=== PATIENT | male | born 2000 | race Caucasian/White ===

== ENCOUNTER 2020-02-14 23:25 | Inpatient (IN) | payer MEDICAID, SELFPAY ==
[2020-02-14 23:40] VITALS: BP 124/86; PULSE 77; RESP 18; TEMP 36.9; O2SAT 98; BMI 21.6
[2020-02-15] VITALS (9 sets, daily range): BP systolic 105–138; BP diastolic 62–79; PULSE 65–96; RESP 14–18; TEMP 36.4–37.4; O2SAT 98–100
--- NOTE | 2020-02-15 02:44 | ED_ITS ---
HPI - General Adult General Chief complaint: General Medical Stated complaint: Rash Time Seen by Provider: 02/15/20 02:40 Source: patient Mode of arrival: ambulatory History of Present Illness HPI narrative: This is a 19-year-old male who presents with concerns regarding new inflammation around the ventral right wrist that he states came up over the past day and then he noted after waking up that he had a red streak running proximally up his arm but denies any fevers, chills and is unclear to what may have caused the initial infection. He denies any IVDA but is known to have recently been in penitentiary. Otherwise, he denies any shortness of breath, chest pain/palpitations. Related Data Home Medications Medication Instructions Recorded Confirmed No Known Home Meds 02/15/20 02/15/20 Allergies Allergy/AdvReac Type Severity Reaction Status Date / Time sertraline [From ZOLOFT] Allergy Unknown HIVES Verified 02/14/20 23:32 vancomycin AdvReac Hives Verified 02/15/20 06:28 Review of Systems Review of Systems: Pertinent positives and negatives as stated in HPI and 10 point review systems is otherwise negative. PMFSH Past Medical History Source: nursing notes reviewed Social History Social History Alcohol intake: never Smoking Status: Never smoker Use of substances other than those prescribed or required for medical reasons: Yes Substance Use Type: Marijuana Substance Use Frequency: Occasionally Last Used Substance: Weeks (ago) Advance Directives: No Advance Directives Information Provided: No Physical Exam 2 Vital Signs: Vital Signs: Last Vital Signs Temp 99.0 F 02/15/20 06:00 Pulse 85 02/15/20 06:00 Resp 18 02/15/20 06:00 BP 105/62 02/15/20 06:00 Pulse Ox 99 02/15/20 06:00 Body Mass Index 21.6 VITAL SIGNS: Reviewed. GENERAL: Well developed, well nourished, in no acute distress. OROPHARYNX: no oral lesions noted, posterior pharynx clear and non-erythematous without noted tonsillar enlargement/erythema/exudates NECK: Supple, no adenopathy LUNGS: Normal breath sounds. No adventitious sounds or accessory muscle use. SpO2<100> CARDIOVASCULAR: Regular rate and rhythm without noted murmurs, no JVD or lower extremity edema. ABDOMEN: Soft, non-tender, non-distended with bowel sounds. No rigidity. No guarding. No palpable masses or hernias noted MUSCULOSKELETAL: No tenderness, deformities, or effusions noted on gross inspection. EXTREMITIES: Right arm with noted approximate 4.5 cm erythematous, raised area on the ventral wrist and then there is a noted eschar, and there is noted redness traveling up the course of the vein proximally and into the axilla. SKIN: Inspection of the skin reveals no rashes NEUROLOGIC: Alert and oriented x 4. Course Course Course Narrative: This is a 19-year-old male with history and clinical presentation consistent with evidence of possible bacteremia of unknown etiology. Patient denies any insect/PET injury to the right wrist. -labs, blood cultures, IV antibiotics On review of investigations there is a very mild leukocytosis with left shift, he is COVID negative, and he was provided with antibiotics. Patient experienced ?red man? symptom after receiving vancomycin and received 25 mg of Benadryl with complete resolution of the redness and the vancomycin was restarted at a slower rate. This case was discussed with the inpatient hospitalist who is agreeable for admission. Medical Decision Making Lab Data Result diagrams: 02/15/20 03:08 02/15/20 03:08 Labs: Lab Results 02/15/20 02/15/20 02/15/20 Range/Units 03:08 03:08 03:08 WBC 11.1 H (4.8-10.8) X10*3/uL RBC 5.75 (4.60-5.80) X10*6/uL Hgb 14.9 (14.0-18.0) g/dl Hct 45.7 (42-52) % MCV 79.5 L (80-98) fL MCH 25.9 L (27.0-33.0) pg MCHC 32.6 (31.0-36.0) g/dl RDW 12.3 (11.0-16.0) % Plt Count 203 (160-400) X10*3/uL MPV 12.8 H (9.4-12.4) fL Immature Gran % (Auto) 0.2 (0.0-0.4) % Neut % (Auto) 79.2 H (45-73) % Lymph % (Auto) 12.5 L (20-40) % [place] % (Auto) 6.8 (2-11) % Eos % (Auto) 0.9 (0-4) % Baso % (Auto) 0.4 (0-2) % Lymph # (Auto) 1.4 (1.2-4.9) X10*3/uL [place] # (Auto) 0.8 (0.1-1.2) X10*3/uL Eos # (Auto) 0.1 (0.0-0.4) X10*3/uL Baso # (Auto) 0.1 (0.0-0.2) X10*3/uL Abs Immat Gran (auto) 0.02 (0.00-0.03) X10*3/uL Absolute Neuts (auto) 8.8 H (2.0-8.3) X10*3/uL Absolute Nucleated RBC 0.000 (0.0-0.012) X10*3/uL Nucleated RBC % (auto) 0.0 (0.0-0.2) /100WBC Sodium 138 (135-145) mmol/L Potassium 4.0 (3.3-5.1) mmol/l Chloride 103 (96-108) mmol/L Carbon Dioxide 24 (22-29) mmol/L Anion Gap 15 (12-20) BUN 15 (9-16) mg/dL Creatinine 0.82 (0.5-1.4) mg/dL Estim Creat Clear Calc 118.8 Estimated GFR > 60 Random Glucose 90 (60-115) mg/dL Lactic Acid 1.2 (0.5-2.0) mmol/L Calcium 9.7 (8.4-10.2) mg/dL Total Bilirubin 0.6 (0.0-1.0) mg/dL AST 24 (5-37) U/L ALT 37 (0-40) U/L Alkaline Phosphatase 63 (39-117) U/L Total Protein 7.6 (6.5-8.0) g/dL Albumin 4.7 (3.5-5.0) g/dL Coronavirus (PCR) (Negative) COVID-19 ([facility]) COVID-19 Clin Com Influenza Type A (PCR) (Negative) Influenza Type B (PCR) (Negative) RSV RNA Qual (PCR) (Negative) 02/15/20 02/15/20 Range/Units 03:09 03:09 WBC (4.8-10.8) X10*3/uL RBC (4.60-5.80) X10*6/uL Hgb (14.0-18.0) g/dl Hct (42-52) % MCV (80-98) fL MCH (27.0-33.0) pg MCHC (31.0-36.0) g/dl RDW (11.0-16.0) % Plt Count (160-400) X10*3/uL MPV (9.4-12.4) fL Immature Gran % (Auto) (0.0-0.4) % Neut % (Auto) (45-73) % Lymph % (Auto) (20-40) % [place] % (Auto) (2-11) % Eos % (Auto) (0-4) % Baso % (Auto) (0-2) % Lymph # (Auto) (1.2-4.9) X10*3/uL [place] # (Auto) (0.1-1.2) X10*3/uL Eos # (Auto) (0.0-0.4) X10*3/uL Baso # (Auto) (0.0-0.2) X10*3/uL Abs Immat Gran (auto) (0.00-0.03) X10*3/uL Absolute Neuts (auto) (2.0-8.3) X10*3/uL Absolute Nucleated RBC (0.0-0.012) X10*3/uL Nucleated RBC % (auto) (0.0-0.2) /100WBC Sodium (135-145) mmol/L Potassium (3.3-5.1) mmol/l Chloride (96-108) mmol/L Carbon Dioxide (22-29) mmol/L Anion Gap (12-20) BUN (9-16) mg/dL Creatinine (0.5-1.4) mg/dL Estim Creat Clear Calc Estimated GFR Random Glucose (60-115) mg/dL Lactic Acid (0.5-2.0) mmol/L Calcium (8.4-10.2) mg/dL Total Bilirubin (0.0-1.0) mg/dL AST (5-37) U/L ALT (0-40) U/L Alkaline Phosphatase (39-117) U/L Total Protein (6.5-8.0) g/dL Albumin (3.5-5.0) g/dL Coronavirus (PCR) NEGATIVE (Negative) COVID-19 ([facility]) Cancelled COVID-19 Clin Com Cancelled Influenza Type A (PCR) NEGATIVE (Negative) Influenza Type B (PCR) NEGATIVE (Negative) RSV RNA Qual (PCR) NEGATIVE (Negative) Discharge Plan Discharge Clinical Impression: Bacteremia Patient Disposition: Admitted As Inpatient
[2020-02-15] MEDS: Piperacillin Sodium/Tazobactam 3.375 GM in 0.9 % Sodium Chloride 50 ML IV (03:22)
[2020-02-15 03:26] LABS: Basophils Absolute Auto 0.1 X10*3/uL (0.0-0.2); Basophils Percent Auto 0.4 % (0-2); Eosinophils Absolute Auto 0.1 X10*3/uL (0.0-0.4); Eosinophils Percent Auto 0.9 % (0-4); Hematocrit 45.7 % (42-52); Hemoglobin 14.9 g/dl (14.0-18.0); Imm Gran Abs Auto 0.02 X10*3/uL (0.00-0.03); Imm Gran Pct Auto 0.2 % (0.0-0.4); Lymphocytes Absolute Auto 1.4 X10*3/uL (1.2-4.9); Lymphocytes Percent Auto 12.5 % (20-40); Mean Corpuscular HGB Conc 32.6 g/dl (31.0-36.0); Mean Corpuscular Hemoglobin 25.9 pg (27.0-33.0); Mean Corpuscular Volume 79.5 fL (80-98); Mean Platelet Volume 12.8 fL (9.4-12.4); Monocytes Absolute Auto 0.8 X10*3/uL (0.1-1.2); Monocytes Percent Auto 6.8 % (2-11); Neutrophils Absolute Auto 8.8 X10*3/uL (2.0-8.3); Neutrophils Percent Auto 79.2 % (45-73); Platelet Count 203 X10*3/uL (160-400); Red Blood Count 5.75 X10*6/uL (4.60-5.80); Red Cell Distribution Width 12.3 % (11.0-16.0); White Blood Count 11.1 X10*3/uL (4.8-10.8)
[2020-02-15 03:28] LABS: MANUAL DIFF FLAG NO
[2020-02-15 03:54] LABS: Lactic Acid 1.2 mmol/L (0.5-2.0)
[2020-02-15 03:58] LABS: Alanine Aminotransferase 37 U/L (0-40); Albumin Level 4.7 g/dL (3.5-5.0); Alkaline Phosphatase 63 U/L (39-117); Anion Gap 15 (12-20); Aspartate Amino Transferase 24 U/L (5-37); Bilirubin Total 0.6 mg/dL (0.0-1.0); Blood Urea Nitrogen 15 mg/dL (9-16); Calcium 9.7 mg/dL (8.4-10.2); Carbon Dioxide 24 mmol/L (22-29); Chloride 103 mmol/L (96-108); Creatinine Clr Calc Pharmacy 118.8; Estimated Glomerular Filt Rate > 60; Glucose Random 90 mg/dL (60-115); Sodium 138 mmol/L (135-145); Total Protein 7.6 g/dL (6.5-8.0)
[2020-02-15] MEDS: vancomycin HCL 1,000 MG in 0.9 % Sodium Chloride 250 ML 270 MG IV (04:06)
[2020-02-15] MEDS: diphenhydrAMINE HCL 50 MG/ML VIAL 25 MG IVPUSH (05:06)
--- NOTE | 2020-02-15 05:09 | PC.NURSE ---
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 bendryl given. pt has no swelling to the oral airway. redness to face, chest, vitals stable. sat 100% on room air/.
--- NOTE | 2020-02-15 05:24 | PC.NURSE ---
pt redness to his face is lessening. pt has no resp distress and no difficulty swallowing. vacomycin remains off and will be resumed in 30 from receiving benadryl.
[2020-02-15 05:35] LABS: Influenza A PCR NEGATIVE (Negative); Influenza B PCR NEGATIVE (Negative); Resp Syncy Virus RNA Qual PCR NEGATIVE (Negative); SARS COV2 PCR INHOUSE NEGATIVE (Negative)
--- NOTE | 2020-02-15 06:32 | PC.NURSE ---
vancomycin resumed at a lower dose per dr garcia. pt redness has resolved to his face and chest. arm redness is resolving but still present.
--- NOTE | 2020-02-15 07:06 | PC.NURSE ---
Pt comfortable in bed awaiting admission. Right arm effected area remains red but has not increased outside of marked area. Pt's face and chest no longer red. No rash. Pt denies itching.
--- NOTE | 2020-02-15 11:10 | P.HPHOSP_ITS ---
History of Present Illness Date of Service: 02/15/20 <GENOVEVA Velazquez - Last Filed: 02/15/20 11:19> Chief Complaint: right arm redness <GENOVEVA Velazquez - Last Filed: 02/15/20 11:19> This is a 19-year-old healthy male who presents to the emergency department with right arm redness. Yesterday he noticed an area of redness on his wrist which progressed to streaking up his arm this morning. This prompted him to come to the emergency department. He denies any associated pain, fever, chills. Lab work was relatively unremarkable, he was noted to have a white count of 11.1. He was given a dose of vancomycin Zosyn and the decision was made to admit him for further management. <GENOVEVA Velazquez - Last Filed: 02/15/20 11:19> Review of Systems Review of Systems: Yes all other systems are reviewed and are negative <GENOVEVA Velazquez - Last Filed: 02/15/20 11:19> Constitutional: Constitutional: Denies chills and Denies fever(s) <GENOVEVA Velazquez - Last Filed: 02/15/20 11:19> Cardiovascular: Cardiovascular: Denies chest pain <GENOVEVA Velazquez - Last Filed: 02/15/20 11:19> Respiratory: Respiratory: Denies cough <GENOVEVA Velazquez - Last Filed: 02/15/20 11:19> Gastrointestinal: Gastrointestinal: Denies abdominal pain <GENOVEVA Velazquez - Last Filed: 02/15/20 11:19> [facility] Medical History: Medical History (Updated 02/15/20 @ 11:16 by GENOVEVA Velazquez) No significant medical problems <GENOVEVA Velazquez Last Filed: 02/15/20 11:19> Functional capacity: independent ambulation <GENOVEVA Velazquez - Last Filed: 02/15/20 11:19> Family history: reviewed and not pertinent <GENOVEVA Velazquez - Last Filed: 02/15/20 11:19> Surgical History: Surgical History (Updated 02/15/20 @ 11:14 by GENOVEVA Velazquez) H/O foot surgery <GENOVEVA Velazquez - Last Filed: 02/15/20 11:19> Social History: Social History Household Members: Family Household Members Other:: mom Housing: House Do you presently have visiting nurse or other home services: No Alcohol intake: never Smoking Status: Never smoker Use of substances other than those prescribed or required for medical reasons: No Substance Use Type: Marijuana Substance Use Frequency: Occasionally Last Used Substance: Weeks (ago) Currently Displaying Signs/Symptoms of Drug Intoxication Withdrawal: No Have you been hit, kicked, punched, or otherwise hurt by someone within the past year? If so, by whom?: No Do you feel safe in your current relationship?: No Is there a partner from a previous relationship who is making you feel unsafe now?: No Are you made to feel afraid or neglected: No Advance Directives: No Advance Directives Information Provided: No Do you have thoughts of harming others: None Do you have a plan to hurt others: No Plan Recently lost weight without trying: No <GENOVEVA Velazquez - Last Filed: 02/15/20 11:19> Meds Allergies/Adverse reactions: Allergies Allergy/AdvReac Type Severity Reaction Status Date / Time sertraline [From ZOLOFT] Allergy Unknown HIVES Verified 02/14/20 23:32 vancomycin AdvReac Hives Verified 02/15/20 06:28 <GENOVEVA Velazquez - Last Filed: 02/15/20 11:19> Home medications: Home Medications Medication Instructions Recorded Confirmed Type No Known Home Meds 02/15/20 02/15/20 History <GENOVEVA Velazquez - Last Filed: 02/15/20 11:19> Physical Exam Vital Signs and Narrative: Vital Signs: Last Vital Signs Temp 98.7 F 02/15/20 08:42 Pulse 89 02/15/20 08:42 Resp 16 02/15/20 08:42 BP 123/79 02/15/20 08:42 Pulse Ox 100 02/15/20 08:42 Body Mass Index 21.6 <GENOVEVA Velazquez - Last Filed: 02/15/20 11:19> Const: Nutritional Appearance: well nourished <GENOVEVA Velazquez - Last Filed: 02/15/20 11:19> Orientation/consciousness: patient oriented x3 <GENOVEVA Velazquez - Last Filed: 02/15/20 11:19> HENMT: Head: Yes normocephalic and Yes atraumatic <GENOVEVA Velazquez - Last Filed: 02/15/20 11:19> Eyes: Sclerae: sclerae normal <GENOVEVA Velazquez - Last Filed: 1 11:19> Chest: Chest palpation & inspection: normal inspection of the chest <GENOVEVA Velazquez - Last Filed: 02/15/20 11:19> Resp: Effort & Inspection: normal respiratory effort and no respiratory distress <GENOVEVA Velazquez - Last Filed: 02/15/20 11:19> Auscultation: clear to auscultation bilaterally <GENOVEVA Velazquez - Last Filed: 02/15/20 11:19> Cardio: Rate: regular rate <GENOVEVA Velazquez - Last Filed: 02/15/20 11:19> Rhythm: regular rhythm <GENOVEVA Velazquez - Last Filed: 02/15/20 11:19> GI: Palpation (GI): Soft to palpation and nontender <GENOVEVA Velazquez - Last Filed: 02/15/20 11:19> Skin: General skin exam: no rashes or lesions noted <GENOVEVA Velazquez - Last Filed: 02/15/20 11:19> Neuro: General: patient oriented x3 <GENOVEVA Velazquez - Last Filed: 02/15/20 11:19> Cranial nerves: Yes CN's II-XII intact bilaterally and Yes Bilaterally intact EOM present <GENOVEVA Velazquez - Last Filed: 02/15/20 11:19> Extrem: Other: Area of erythema on ventral surface of right wrist with streaking up into armpit <GENOVEVA Velazquez - Last Filed: 02/15/20 11:19> Results Labs CBC and Chem 7: : 02/16/20 05:55 12/31/20 05:55 <GENOVEVA Velazquez - Last Filed: 02/15/20 11:19> Labs: Laboratory Results - last 24 hr 02/15/20 02/15/20 02/15/20 03:08 03:08 03:08 MCV 79.5 L MCH 25.9 L MCHC 32.6 RDW 12.3 Plt Count 203 MPV 12.8 H Immature Gran % (Auto) 0.2 Neut % (Auto) 79.2 H Lymph % (Auto) 12.5 L [place] % (Auto) 6.8 Eos % (Auto) 0.9 Baso % (Auto) 0.4 Lymph # (Auto) 1.4 [place] # (Auto) 0.8 Eos # (Auto) 0.1 Baso # (Auto) 0.1 Abs Immat Gran (auto) 0.02 Absolute Neuts (auto) 8.8 H Absolute Nucleated RBC 0.000 Nucleated RBC % (auto) 0.0 Anion Gap 15 Estim Creat Clear Calc 118.8 Estimated GFR > 60 Random Glucose 90 Lactic Acid 1.2 Calcium 9.7 Total Bilirubin 0.6 AST 24 ALT 37 Alkaline Phosphatase 63 Total Protein 7.6 Albumin 4.7 Coronavirus (PCR) COVID-19 ([facility]) COVID-19 Clin Com Influenza Type A (PCR) Influenza Type B (PCR) RSV RNA Qual (PCR) 02/15/20 02/15/20 03:09 03:09 MCV MCH MCHC RDW Plt Count MPV Immature Gran % (Auto) Neut % (Auto) Lymph % (Auto) [place] % (Auto) Eos % (Auto) Baso % (Auto) Lymph # (Auto) [place] # (Auto) Eos # (Auto) Baso # (Auto) Abs Immat Gran (auto) Absolute Neuts (auto) Absolute Nucleated RBC Nucleated RBC % (auto) Anion Gap Estim Creat Clear Calc Estimated GFR Random Glucose Lactic Acid Calcium Total Bilirubin AST ALT Alkaline Phosphatase Total Protein Albumin Coronavirus (PCR) NEGATIVE COVID-19 ([facility]) Cancelled COVID-19 Clin Com Cancelled Influenza Type A (PCR) NEGATIVE Influenza Type B (PCR) NEGATIVE RSV RNA Qual (PCR) NEGATIVE <GENOVEVA Velazquez - Last Filed: 02/15/20 11:19> Assessment and Plan (1) Cellulitis of right arm: Status: Acute <GENOVEVA Velazquez - Last Filed: 02/15/20 11:19> (2) Lymphangitis: Status: Acute <GENOVEVA Velazquez - Last Filed: 02/15/20 11:19> This is a 19-year-old male with no significant past medical history who presents to the emergency department with redness streaking up his right arm Right upper extremity cellulitis/lymphangitis No evidence of sepsis IV clindamycin DVT prophylaxis-low risk early ambulation will be encouraged Code status-full code This case was discussed with Dr. Valencia <GENOVEVA Velazquez - Last Filed: 02/15/20 11:19>
[2020-02-15] MEDS: Clindamycin Phosphate/D5W 600 MG/50 ML PIGGYBACK 100 MG IV ×2 (11:59→20:10)
--- NOTE | 2020-02-15 12:12 | PC.NURSE ---
Pt awaiting bed assignment for transfer to floor. Clindamycin started. Lunch ordered for pt.
--- NOTE | 2020-02-15 17:38 | PC.NURSE ---
Bed assigned to pt. Schuster scheduled b ut with previous hx of red man syndrome was notified to ensure that he wanted this next dose. Per Dr.Mlaphah austin schuster and he will be placing another order for a different abx.
--- NOTE | 2020-02-15 17:41 | PC.NURSE ---
[facility] floor contacted. Will call back for report when able.
[2020-02-15] MEDS: 0.9 % Sodium Chloride Flush 3 ML SYRINGE IVFLUSH ×2 (20:10→20:48)
[2020-02-16] MEDS: Clindamycin Phosphate/D5W 600 MG/50 ML PIGGYBACK 100 MG IV ×2 (03:15→10:04)
[2020-02-16 03:43] VITALS: BP 141/70; PULSE 86; RESP 16; TEMP 36.6; O2SAT 99
[2020-02-16] MEDS: diphenhydrAMINE HCL 25 MG TABLET PO (06:21)
[2020-02-16 07:06] LABS: Anion Gap 15 (12-20); Blood Urea Nitrogen 11 mg/dL (9-16); Calcium 9.5 mg/dL (8.4-10.2); Carbon Dioxide 22 mmol/L (22-29); Chloride 105 mmol/L (96-108); Creatinine Clr Calc Pharmacy 121.8; Estimated Glomerular Filt Rate > 60; Glucose Random 116 mg/dL (60-115); Sodium 138 mmol/L (135-145)
[2020-02-16 07:07] LABS: Basophils Percent Auto 0.4 % (0-2); Eosinophils Percent Auto 2.1 % (0-4); Hemoglobin 14.5 g/dl (14.0-18.0); Imm Gran Abs Auto 0.03 X10*3/uL (0.00-0.03); Imm Gran Pct Auto 0.3 % (0.0-0.4); MANUAL DIFF FLAG SCAN; Red Blood Count 5.58 X10*6/uL (4.60-5.80); Red Cell Distribution Width 12.4 % (11.0-16.0); SCAN SMEAR FLAG 1
[2020-02-16 07:09] LABS: Basophils Absolute Auto 0.1 X10*3/uL (0.0-0.2); Eosinophils Absolute Auto 0.3 X10*3/uL (0.0-0.4); Hematocrit 44.2 % (42-52); Lymphocytes Absolute Auto 0.8 X10*3/uL (1.2-4.9); Lymphocytes Percent Auto 6.7 % (20-40); Mean Corpuscular HGB Conc 32.8 g/dl (31.0-36.0); Mean Corpuscular Volume 79.2 fL (80-98); Monocytes Percent Auto 8.8 % (2-11); Neutrophils Absolute Auto 9.5 X10*3/uL (2.0-8.3); Neutrophils Percent Auto 81.7 % (45-73); PLT CLUMP 1
[2020-02-16] MEDS: 0.9 % Sodium Chloride Flush 3 ML SYRINGE IVFLUSH ×3 (07:11→19:54)
[2020-02-16 07:13] LABS: PLT ABN DIST 1
[2020-02-16 07:35] LABS: Platelet Count 149 X10*3/uL (160-400); White Blood Count 11.7 X10*3/uL (4.8-10.8)
[2020-02-16 07:36] LABS: SLIDE REVIEW VERIFIED
[2020-02-16 07:55] VITALS: BP 121/76; PULSE 90; RESP 18; TEMP 37.1; O2SAT 99
--- NOTE | 2020-02-16 09:16 | HO.PM.IMPN ---
Subjective Subjective Date of Service: 02/16/20 Interval History: Seen in follow-up for heart right the hand and on cellulitis. Patient says that he days itchiness in the arm but thinks this swelling in the redness has significantly improved since yesterday. There is itchyness in the arm Review of Systems Gen: no fever Resp: no sob, no cough CV: no chest, no AN, no leg edema GI: No n/v, no abd pain Musculoskeletal: Redness in the right arm. Neuro: No confusion Physical Exam Vital Signs: Vital Signs: Last Vital Signs Temp 98.8 F 02/16/20 07:55 Pulse 90 02/16/20 07:55 Resp 18 02/16/20 07:55 BP 121/76 02/16/20 07:55 Pulse Ox 99 02/16/20 07:55 Body Mass Index 21.6 Const: General: healthy appearing Orientation/consciousness: patient oriented x3 Resp: Effort & Inspection: normal respiratory effort and able to speak in complete sentences Cardio: Rate: regular rate Skin: Other: Neuro: General: patient oriented x3 Objective Data Current Medications Generic Name Dose Route Start Last Admin Trade Name Freq PRN Reason Stop Dose Admin Acetaminophen 650 mg 02/15/20 19:33 Acetaminophen 325 Mg Tablet PO Q6H PRN Pain, Mild (Pain Scale 1-3) Docusate Sodium 100 mg 02/15/20 19:33 Docusate Sodium 100 Mg Capsule PO DAILY PRN Constipation Clindamycin Phosphate 600 mg in 50 mls @ 100 mls/hr 02/15/20 11:00 02/16/20 03:50 Cleocin IV Infused Q8H [facility] Infusion Ondansetron HCl 4 mg 02/15/20 19:33 Ondansetron Hcl 4 Mg/2 Ml Vial IVPUSH Q8H PRN Nausea and Vomiting Sodium Chloride 3 ml 02/15/20 19:33 02/16/20 07:11 0.9 % Sodium Chloride Flush 3 Ml Syringe IVFLUSH 3 ml QSHIFT [facility] Administration Labs CBC & Chem 7: 02/16/20 05:55 02/16/20 05:55 Microbiology Microbiology Results: Microbiology 02/15/20 03:08 Blood - Venous Blood Culture - Preliminary No growth after 24 hours. 02/15/20 03:08 Blood - Venous Blood Culture - Preliminary No growth after 24 hours. Assessment and Plan (1) Cellulitis of right arm: Status: Acute (2) Lymphangitis: Status: Acute Assessment and Plan: 19-year-old male with no significant past medical history who presents to the emergency department with redness streaking up his right arm Right upper extremity cellulitis/lymphangitis No evidence of sepsis IV clindamycin ID consult to assess Cultures pending DVT prophylaxis-low risk early ambulation will be encouraged Code status-full code
[2020-02-16 11:54] VITALS: BP 117/74; PULSE 80; RESP 18; TEMP 37.1; O2SAT 99
--- NOTE | 2020-02-16 12:14 | P.F2F_ITS ---
Service Date Service Date: 02/16/20 Reasons for Services Reason for penitentiary: medication management Reason for occupational therapy: home safety and mobility and gait/transfer training Homebound: Leaving the home is medically contraindicated at this time without the asist of a device and/or another person due th the listed conditions above and below. Homebound supporting statement: Homebound due to unsteady gait, poor understanding and threfore needs the assistance of another person Certification: Based on the above findings, I certify that this patient is confined to the home and needs intermittent penitentiary care, physical therapy and/or speech therapy, or continues to need occupational therapy. The patient is under my care, and I have initiated the establishment of the plan of care. The patient will be followed by a physician who will periodically review the plan of care.
--- NOTE | 2020-02-16 13:02 | MHC.CM.PN ---
Pt independent at home, lives with mom and step-father, pt has no need for home services at this time, pt is uninsured and referral was made to financial services who report they will see pt this afternoon and assist with pt with signing up for [facility]. Per hospitalist pt will need at least a few more days of IV abx before discharge. Discharge Plan: Home self-care, family to transport HCP offered, pt declined at this time.
[2020-02-16 15:36] VITALS: BP 131/75; PULSE 77; RESP 18; TEMP 36.8; O2SAT 97
[2020-02-16] MEDS: Linezolid/D5W 600 MG/300 ML PIGGYBACK 300 MG IV (17:16)
[2020-02-16 19:35] VITALS: BP 110/72; PULSE 99; RESP 18; TEMP 36.5; O2SAT 100
--- NOTE | 2020-02-16 19:53 | W.PM.IDCN ---
History of Present Illness Data of Consult Service Date: 02/16/20 Requesting physician: Loc Valencia Primary Care Provider: None Physician HPI Reason for consult: right arm lymphangitis He presents to hospital with discomfort and redness starting from wrist and spreading up arm He has area at wrist that has swelling and pustule which has been itchy over last week He says skin area at wrist has been itchy over last couple months Yesterday he has redness started extending up right arm Review of Systems Review of Systems: Yes all other systems are reviewed and are negative [facility] Past Medical History Medical History No significant medical problems Functional capacity: independent ambulation Family History Family history: reviewed and not pertinent Surgical History Surgical History H/O foot surgery Social History Social History Household Members: Family Household Members Other:: mom Housing: House Do you presently have visiting nurse or other home services: No Alcohol intake: never Smoking Status: Never smoker Use of substances other than those prescribed or required for medical reasons: No Substance Use Type: Marijuana Substance Use Frequency: Occasionally Last Used Substance: Weeks (ago) Currently Displaying Signs/Symptoms of Drug Intoxication Withdrawal: No Have you been hit, kicked, punched, or otherwise hurt by someone within the past year? If so, by whom?: No Do you feel safe in your current relationship?: No Is there a partner from a previous relationship who is making you feel unsafe now?: No Are you made to feel afraid or neglected: No Advance Directives: No Advance Directives Information Provided: No Do you have thoughts of harming others: None Do you have a plan to hurt others: No Plan Recently lost weight without trying: No service: No Current occupational status: unemployed Meds Allergies Allergy/AdvReac Type Severity Reaction Status Date / Time sertraline [From ZOLOFT] Allergy Unknown HIVES Verified 02/14/20 23:32 vancomycin AdvReac Hives Verified 02/15/20 06:28 Home Medications Medication Instructions Recorded Confirmed Type No Known Home Meds 02/15/20 02/15/20 History Physical Exam Vital Signs: Vital Signs: Last Vital Signs Temp 97.7 F 02/16/20 19:35 Pulse 99 02/16/20 19:35 Resp 18 02/16/20 19:35 BP 110/72 02/16/20 19:35 Pulse Ox 100 02/16/20 19:35 Body Mass Index 21.6 Const: General: cooperative HENMT: Head: Yes normal to inspection Resp: Effort & Inspection: normal respiratory effort Cardio: Rate: regular rate Rhythm: regular rhythm GI: Palpation (GI): Soft to palpation and nontender Skin: General skin exam: no rashes or lesions noted Extrem: Other: lymphangitic spread up right arm Assessment and Plan (1) Cellulitis of right arm: Problem details: He has concern over MRSA as he had skin irritation he thinks related to handcuffs during incarceration He has concern over strep lymphangitis as well He is not responding to Vancomycin and has low levels Status: Acute Linezolid 600 mg IV every 12 hours cover staph and strep [place] effect helps reduce bacterial toxin and bacterial burden Probably 10-14 days (2) Lymphangitis: Status: Acute Results Labs CBC & Chem 7: 02/16/20 05:55 02/16/20 05:55 Labs: Short CBC 02/16/20 Range/Units 05:55 WBC 11.7 H (4.8-10.8) X10*3/uL Hgb 14.5 (14.0-18.0) g/dl Hct 44.2 (42-52) % Plt Count 149 L D (160-400) X10*3/uL BMP 02/16/20 05:55 Sodium 138 Potassium 4.0 Chloride 105 Carbon Dioxide 22 BUN 11 Creatinine 0.80 Calcium 9.5 Microbiology Microbiology Results: Microbiology 02/15/20 03:08 Blood - Venous Blood Culture - Preliminary No growth after 24 hours. 02/15/20 03:08 Blood - Venous Blood Culture - Preliminary No growth after 24 hours.
[2020-02-16 23:36] VITALS: BP 136/59; PULSE 73; RESP 19; TEMP 36.5; O2SAT 98
[2020-02-17 04:00] VITALS: BP 128/61; PULSE 87; RESP 18; TEMP 36.8; O2SAT 99
[2020-02-17] MEDS: Linezolid/D5W 600 MG/300 ML PIGGYBACK 300 MG IV ×2 (05:05→17:05)
[2020-02-17] MEDS: 0.9 % Sodium Chloride Flush 3 ML SYRINGE IVFLUSH ×3 (07:41→19:21)
[2020-02-17 08:00] VITALS: BP 119/71; PULSE 85; RESP 16; TEMP 36.9; O2SAT 98
--- NOTE | 2020-02-17 08:22 | HO.PM.IMPN ---
Subjective Subjective Date of Service: 02/17/20 Interval History: Seen in follow-up for heart right the hand and on cellulitis. Patient says that he days itchiness in the arm but thinks this swelling in the redness has significantly improved since yesterday. There is itchyness in the arm Review of Systems Gen: no fever Resp: no sob, no cough CV: no chest, no AN, no leg edema GI: No n/v, no abd pain Musculoskeletal: Redness in the right arm. Neuro: No confusion Physical Exam Vital Signs: Vital Signs: Last Vital Signs Temp 98.2 F 02/17/20 04:00 Pulse 87 02/17/20 04:00 Resp 18 02/17/20 04:00 BP 128/61 02/17/20 04:00 Pulse Ox 99 02/17/20 04:00 Body Mass Index 21.6 Const: Orientation/consciousness: patient oriented x3 Resp: Effort & Inspection: normal respiratory effort Cardio: Rate: regular rate GI: Inspection: Yes normal to inspection Skin: Other: Neuro: General: patient oriented x3 Objective Data Current Medications Generic Name Dose Route Start Last Admin Trade Name Freq PRN Reason Stop Dose Admin Acetaminophen 650 mg 02/15/20 19:33 Acetaminophen 325 Mg Tablet PO Q6H PRN Pain, Mild (Pain Scale 1-3) Docusate Sodium 100 mg 02/15/20 19:33 Docusate Sodium 100 Mg Capsule PO DAILY PRN Constipation Linezolid 600 mg in 300 mls @ 300 mls/hr 02/16/20 18:00 02/17/20 06:21 Zyvox/D5w IV Infused Q12H DOLORES Infusion Ondansetron HCl 4 mg 02/15/20 19:33 Ondansetron Hcl 4 Mg/2 Ml Vial IVPUSH Q8H PRN Nausea and Vomiting Sodium Chloride 3 ml 02/15/20 19:33 02/17/20 07:41 0.9 % Sodium Chloride Flush 3 Ml Syringe IVFLUSH 3 ml QSHIFT [facility] Administration Labs CBC & Chem 7: 02/16/20 05:55 02/16/20 05:55 Microbiology Microbiology Results: Microbiology 02/15/20 03:08 Blood - Venous Blood Culture - Preliminary No growth after 48 hours. 02/15/20 03:08 Blood - Venous Blood Culture - Preliminary No growth after 48 hours. Assessment and Plan (1) Cellulitis of right arm: Problem details: He has concern over MRSA as he had skin irritation he thinks related to handcuffs during incarceration He has concern over strep lymphangitis as well He is not responding to Vancomycin and has low levels Status: Acute (2) Lymphangitis: Status: Acute Assessment and Plan: 19-year-old male with no significant past medical history who presents to the emergency department with redness streaking up his right arm Right upper extremity cellulitis/lymphangitis No evidence of sepsis IV clindamycin changed to Zyvox 02/15 with signficant improvment. IV Zyvox for 1 more day or home with PO Zyvox for 14 days per ID recommendation Cultures negatiove DVT prophylaxis-low risk early ambulation will be encouraged Code status-full code
[2020-02-17 11:35] VITALS: BP 135/71; PULSE 66; RESP 16; TEMP 36.4; O2SAT 99
[2020-02-17 15:04] VITALS: BP 117/65; PULSE 78; RESP 17; TEMP 36.5; O2SAT 98
[2020-02-17 18:48] VITALS: BP 150/87; PULSE 68; RESP 18; TEMP 36.7; O2SAT 99
[2020-02-18] VITALS: BP 117/74; PULSE 66; RESP 16; TEMP 37.1; O2SAT 100
[2020-02-18 04:00] VITALS: BP 138/76; PULSE 63; RESP 16; TEMP 37.2; O2SAT 100
[2020-02-18] MEDS: Linezolid/D5W 600 MG/300 ML PIGGYBACK 300 MG IV (05:29)
[2020-02-18 07:28] VITALS: BP 119/66; PULSE 70; RESP 18; TEMP 36.4; O2SAT 100
[2020-02-18] MEDS: 0.9 % Sodium Chloride Flush 3 ML SYRINGE IVFLUSH (08:50)
--- NOTE | 2020-02-18 10:29 | MHC.CM.PN ---
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 MET WITH PATIENT REPORTS THAT THE FEELS THE REDNESS AND SWELLING IF HIS RIGHT HAND AND ARM ARE BETTER .A LITTLE BETTER TODAY LESS REDNESS AND SWELLING , BUT THE ITCHINESS PERSISTS. CURRENT PLAN CONTINUE IV ZYVOX AND THEN AT DISCHARGE SWITCH TO PO ZYVOX DISCHARGE PLAN ANTICIPATE HOME NO SERVICES PATIENT TO SELF ARRANGE FOR TRANSPORTATION [facility] IS ASSISITNG PATIENT WITH ,[employer] HEALTH APPLICATION NO PPCP LIST OF THE [facility] GIVEN TO HIM ONCE HE HAS ESTABLISHED INSURANCE TO PICK ONE
--- NOTE | 2020-02-18 10:55 | PM.DS ---
DS: Providers Provider Date of admission: 02/15/20 11:00 Primary care physician: None Physician Consults: 02/16/20 14:19 Consult to Infectious Diseases Routine Consulting Provider: Taylor Lord Reason for consultation: cellulitis of the arm DS: Diagnosis Discharge Diagnosis (1) Cellulitis of right arm: Status: Acute Problem details: He has concern over MRSA as he had skin irritation he thinks related to handcuffs during incarceration He has concern over strep lymphangitis as well He is not responding to Vancomycin and has low levels (2) Lymphangitis: Status: Acute DS: Medications Discharge Medications Home Medications: Home Medications Medication Instructions Recorded Confirmed No Known Home Meds 02/15/20 02/15/20 DS: Summary Hospital Course Hospital Course: HPI: This is a 19-year-old healthy male who presents to the emergency department with right arm redness. Yesterday he noticed an area of redness on his wrist which progressed to streaking up his arm this morning. This prompted him to come to the emergency department. He denies any associated pain, fever, chills. Lab work was relatively unremarkable, he was noted to have a white count of 11.1. He was given a dose of vancomycin Zosyn and the decision was made to admit him for further management. Hospital Course: He was initally treated in ED with IV Vancomycin and reportedly developped claudia syndrome. He was admitted and started on Clindamcyin but the next day there was no signficantly improvmeent so Infectious disease consultation was requested and Dr. Lord started Zyvox on and seems to have have significantly improvmement and will discharge home with .. The erythema is nearly all resolved. Time Spent with Patient Time attestation: Total time spent providing and/or coordinating discharge services: Physical Exam Vital Signs: Vital Signs: Last Vital Signs Temp 97.5 F 02/18/20 07:28 Pulse 70 02/18/20 07:28 Resp 18 02/18/20 07:28 BP 119/66 02/18/20 07:28 Pulse Ox 100 02/18/20 07:28 Body Mass Index 21.6 DS: Data Data Completed and Pending Labs on day of discharge: 02/15/20 02:41 Consult Rx Vancomycin Dosing 1 each MISCELLANE DAILY PRN Piperacillin Sodium/Tazobactam [Zosyn] 3.375 gm 0.9 % Sodium Chloride [Ns] 50 ml IV ONCE vancomycin HCL 1,000 mg 0.9 % Sodium Chloride [Ns] 250 ml IV ONCE 02/15/20 03:08 Complete Blood Count Auto Diff Stat Comprehensive Met. Panel Stat Lactic Acid Stat 02/15/20 03:09 SARS-CoV2/FLU/RSV Stat 02/15/20 03:15 vancomycin HCL 1,000 mg .ROUTE .STK-MED ONE 02/15/20 03:16 Piperacillin Sodium/Tazobactam [Zosyn] 3.375 gm IV .STK-MED ONE 02/15/20 05:00 diphenhydrAMINE HCL [Benadryl] 25 mg IVPUSH ONCE ONE 02/15/20 10:54 Transfer Order Routine 02/15/20 11:00 Clindamycin Phosphate/D5W [Cleocin] 600 mg in 50 ml IV Q8H 02/15/20 16:00 vancomycin HCL 1,000 mg 0.9 % Sodium Chloride [Ns] 250 ml IV Q12H 02/15/20 17:35 vancomycin HCL 1,000 mg .ROUTE .STK-MED ONE 02/16/20 05:55 Basic Metabolic Panel DAILY@0600 Complete Blood Count Auto Diff DAILY@0600 SLIDE REVIEW Routine 02/16/20 06:04 diphenhydrAMINE HCL [Benadryl] 25 mg PO ONCE ONE Laboratory Last Values WBC 11.7 X10*3/uL (4.8-10.8) H 02/16/20 05:55 RBC 5.58 X10*6/uL (4.60-5.80) 02/16/20 05:55 Hgb 14.5 g/dl (14.0-18.0) 02/16/20 05:55 Hct 44.2 % (42-52) 02/16/20 05:55 MCV 79.2 fL (80-98) L 02/16/20 05:55 MCH 26.0 pg (27.0-33.0) L 02/16/20 05:55 MCHC 32.8 g/dl (31.0-36.0) 02/16/20 05:55 RDW 12.4 % (11.0-16.0) 02/16/20 05:55 Plt Count 149 X10*3/uL (160-400) L D 02/16/20 05:55 MPV Not Reportable 02/16/20 05:55 Immature Gran % (Auto) 0.3 % (0.0-0.4) 02/16/20 05:55 Neut % (Auto) 81.7 % (45-73) H 02/16/20 05:55 Lymph % (Auto) 6.7 % (20-40) L 02/16/20 05:55 Sibley % (Auto) 8.8 % (2-11) 02/16/20 05:55 Eos % (Auto) 2.1 % (0-4) 02/16/20 05:55 Baso % (Auto) 0.4 % (0-2) 02/16/20 05:55 Lymph # (Auto) 0.8 X10*3/uL (1.2-4.9) L 02/16/20 05:55 [place]ibley # (Auto) 1.0 X10*3/uL (0.1-1.2) 02/16/20 05:55 Eos # (Auto) 0.3 X10*3/uL (0.0-0.4) 02/16/20 05:55 Baso # (Auto) 0.1 X10*3/uL (0.0-0.2) 02/16/20 05:55 Abs Immat Gran (auto) 0.03 X10*3/uL (0.00-0.03) 02/16/20 05:55 Absolute Neuts (auto) 9.5 X10*3/uL (2.0-8.3) H 02/16/20 05:55 Absolute Nucleated RBC 0.000 X10*3/uL (0.0-0.012) 02/16/20 05:55 Nucleated RBC % (auto) 0.0 /100WBC (0.0-0.2) 02/16/20 05:55 Smear Tech's Comments VERIFIED 02/16/20 05:55 Sodium 138 mmol/L (135-145) 02/16/20 05:55 Potassium 4.0 mmol/l (3.3-5.1) 02/16/20 05:55 Chloride 105 mmol/L (96-108) 02/16/20 05:55 Carbon Dioxide 22 mmol/L (22-29) 02/16/20 05:55 Anion Gap 15 (12-20) 02/16/20 05:55 BUN 11 mg/dL (9-16) 02/16/20 05:55 Creatinine 0.80 mg/dL (0.5-1.4) 02/16/20 05:55 Estim Creat Clear Calc 121.8 02/16/20 05:55 Estimated GFR > 60 02/16/20 05:55 Random Glucose 116 mg/dL (60-115) H 02/16/20 05:55 Lactic Acid 1.2 mmol/L (0.5-2.0) 02/15/20 03:08 Calcium 9.5 mg/dL (8.4-10.2) 02/16/20 05:55 Total Bilirubin 0.6 mg/dL (0.0-1.0) 02/15/20 03:08 AST 24 U/L (5-37) 02/15/20 03:08 ALT 37 U/L (0-40) 02/15/20 03:08 Alkaline Phosphatase 63 U/L (39-117) 02/15/20 03:08 Total Protein 7.6 g/dL (6.5-8.0) 02/15/20 03:08 Albumin 4.7 g/dL (3.5-5.0) 02/15/20 03:08 Coronavirus (PCR) NEGATIVE (Negative) 02/15/20 03:09 COVID-19 (WENDY) Cancelled 02/15/20 03:09 COVID-19 Clin Com Cancelled 02/15/20 03:09 Influenza Type A (PCR) NEGATIVE (Negative) 02/15/20 03:09 Influenza Type B (PCR) NEGATIVE (Negative) 02/15/20 03:09 RSV RNA Qual (PCR) NEGATIVE (Negative) 02/15/20 03:09 Preliminary micro results at discharge 02/15/20 03:08 Blood Culture - Preliminary Blood - Venous No growth after 48 hours. 02/15/20 03:08 Blood Culture - Preliminary Blood - Venous No growth after 48 hours. Discharge Plan Discharge Anticipated Discharge Date/Time: 02/18/20 10:47 Patient Disposition: Home, Self-Care Referrals: Physician,None [Primary Care Provider] - Discharge Medications: New clindamycin HCl 300 mg capsule 300 mg PO Q8H Qty: 21 RF: 0 No Action One-A-Day Men VitaCraves 200 mcg tablet,chewable 1 tab PO DAILY 30 Days Qty: 30 RF: 0 Discharge Orders: Discharge Order (Routine); Ordered 02/18/20 Ordered By: Loc Valencia Diet: advance to usual diet Activity on Discharge: As tolerated Visit Report Forms: Patient Portal Discharge page Care Plan Goals: Full recovery from cellulitis Health Concerns: No other concern than cellulitis abov Plan of Treatment: Take Antibiotics (Clindamycin) as recommended and follow up with your Doctor in a week, call for appointment. If you notice increasing redness, more pain in the arm come back to emergency room Discharge Date/Time: 02/18/20 15:21
[2020-02-18 11:23] VITALS: BP 123/72; PULSE 53; RESP 18; TEMP 36.6; O2SAT 100
--- NOTE | 2020-02-18 11:45 | MHC.CM.PN ---
Addendum entered by Jing Roman 02/18/20 12:10: spoke with patient further he reported that he has started the [employer] connector application and will be following up with [facility] via phone call on thursday ,but as of today does not have any ins card or id numbers , hospitalist will change script for something less expensive and affordable for patient Original Note: nurse ambulatory care note electronic medical record reviewed along with case discussed with staff nurse and hospitalist (through allscript) informing then that a [facility] referral had been iniated on admission but not complete , patient has no current insurance and listed as self pay , he has no pcp and the pharmacy on [facility] in [place] do not have him listed as a client , the pharmacist reported to me that the cost of zyvox is extremely expensive and no discount insurance card or Good rx would cover this ,also it would need insurance authorization ) this was also informed to patient , physician [facility] list given to him and encouraged him to kveen back on thursday to [facility] for assistance in completing [employer] application transportation patient to self arrange
[2020-02-18] MEDS: diphenhydrAMINE HCL 25 MG TABLET PO (14:39)
== END 2020-02-18 15:21 | disposition home or self-care (01) | DRG 603 ==
LOC: HO.ED 02-15 06:31 → HO.IMC 02-15 17:02 → HO.S3 02-15 18:08
PROVIDERS: Physician Assistant Medical; Admitting Provider Internal Medicine; Emergency Provider Student in an Organized Health Care Education/Training Program; PCP Nurse Practitioner Family; Visit Provider Internal Medicine
DX: L03.113 Cellulitis of right upper limb (principal); Z20.828 Contact with and (suspected) exposure to other viral communicable diseases
CPT/HCPCS: 0241U; 36415; 80048; 80053; 83605; 85025; 87040; 96365; 96367; 96375; 99285; J1200; J2020; J2543; J3370; Q0163

== ENCOUNTER 2022-07-17 12:52 | Emergency (ER) | payer OTHER, SELFPAY ==
--- NOTE | ~2022-07-17 | XR_ITS ---
EXAMINATION: XR CHEST CLINICAL INFORMATION: Shortness of breath and wheezing COMPARISON: Chest x-ray 07/27/2017 TECHNIQUE: 2 views of the chest were obtained. FINDINGS: Cardiac silhouette is normal in size. The lungs are well aerated. There is no lobar consolidation. No pleural effusion or pneumothorax. No acute osseous abnormality. XR/XR chest 2V IMPRESSION: No acute pulmonary pathology.
[2022-07-17 12:57] VITALS: BP 151/64; PULSE 105; RESP 26; TEMP 36.5; O2SAT 91; BMI 23.3
--- NOTE | 2022-07-17 12:59 | ED.GENADULT ---
HPI - General Adult General Chief complaint: Dyspnea Stated complaint: asthma Time Seen by Provider: 07/17/22 13:19 Source: patient and family Mode of arrival: ambulatory Limitations: no limitations History of Present Illness HPI narrative: 22-year-old male with a history of asthma not on any medications, history of lymphangitis and cellulitis of the right arm requiring admission for IV antibiotics in the past who presents to the ER for evaluation of worsening shortness of breath and wheezing for the last 6 days. Patient states he has been going to the gym a lot lately and been much more active. He is not on any medicines for his asthma. He does not know his asthma triggers. He has never been hospitalized for his asthma. He is a nonsmoker. He denies any cough, URI symptoms, fever, chills, nausea, vomiting, abdominal pain. MD complaint: Asthma exacerbation Onset (ago): day(s) (6) Location: chest Radiation: non-radiation Severity: severe Pain Consistency: constant Relieving factors: none Exacerbating factors: movement Associated symptoms: denies other symptoms Treatments prior to arrival: none Related Data Previous Rx's Medication Instructions Recorded clindamycin HCl 300 mg capsule 300 mg PO Q8H #21 caps 02/18/20 multivitamin with minerals-folic 1 tab PO DAILY 30 days #30 tabs 02/29/20 acid 200 mcg chewable tablet (One-A-Day Men VitaCraves) albuterol sulfate 2.5 mg/0.5 mL 5 mg inhalation Q4H PRN shortness 07/17/22 solution for nebulization of breath or wheezing #30 ea albuterol sulfate 90 mcg/actuation 1 inh inhalation QID PRN shortness 07/17/22 aerosol inhaler of breath or wheezing #6.7 grams prednisone 20 mg tablet 40 mg PO DAILY #10 tabs 07/17/22 Allergies Allergy/AdvReac Type Severity Reaction Status Date / Time sertraline [From ZOLOFT] Allergy Unknown HIVES Verified 02/14/20 23:32 vancomycin AdvReac Hives Verified 02/15/20 06:28 Review of Systems Review of Systems: Yes all other systems are reviewed and are negative [facility] Past Medical History Medical History (Updated 07/17/22 @ 14:25 by GENOVEVA Morrison) Hospital discharge follow-up No significant medical problems Surgical History H/O foot surgery Social History Social History Household Members: Family Household Members Other:: mom Housing: House Do you presently have visiting nurse or other home services: No Alcohol intake: never Smoked in Last 30 Days: No Use of substances other than those prescribed or required for medical reasons: No Substance Use Type: Marijuana Advance Directives: No Advance Directives Information Provided: Yes service: No Current occupational status: unemployed Physical Exam ED Vital Signs: Vital Signs - 24 hr 07/17/22 12:57 07/17/22 13:23 07/17/22 13:54 Temperature 97.7 F 98.2 F Pulse Rate 105 H 101 H 119 H Respiratory Rate 26 H 21 H 22 H Blood Pressure 151/64 H 137/63 Pulse Oximetry 91 L 96 Oxygen Delivery Method Room Air Room Air 07/17/22 14:19 Temperature Pulse Rate 122 H Respiratory Rate 14 Blood Pressure Pulse Oximetry Oxygen Delivery Method BMI result Body Mass Index 23.3 Appearance: Alert. Oriented X3. Moderate respiratory distress with increased respiratory rate, audible wheezing, accessory muscle use. Diaphoretic Head: normocephalic, atraumatic. Eyes: Pupils equal, round and reactive to light. ENT: Pharynx normal. No tonsillar swelling or exudate. Neck: Normal inspection. Neck supple. CVS: Tachycardic, regular rhythm, heart rate 120 Pulses normal. Respiratory: Moderate respiratory distress. Breath sounds with diffuse inspiratory and expiratory wheezes throughout, increased accessory muscle use Abdomen: Soft and nontender. +BS x4 Skin: Skin warm and dry. Normal skin color. Normal skin turgor. No rashes. Extremities: No lower extremity edema. No joint swelling. Neuro/psych: Oriented X 3. Grossly normal, nonfocal Course Course Course Narrative: This is an RME: Additional HPI, ROS, PE not included below will be deferred to primary provider. This is a [id number]-male, with a past medical history of asthma, presenting to the emergency department with complaints of shortness of breath, wheezing, and cough x 5 days. No fevers or chills. Has never been hospitalized/intubated for his asthma. States hx of seasonal allergies, no smoke exposure. Denies smoking history. Does not have albuterol inhaler at home. Patient inspiratory and expiratory wheezes noted throughout all air sebastian, frequent tight cough noted. Pt placed on 1L O2 via nasal cannula. Informed charge nurse to get bed in main ER for treatment. Plan: Labs, Chest x-ray. Needs updraft +/- steroids. Reevaluation(s) Reevaluation #1: Patient had moderate improvement after 1st 10 mg of albuterol. Heart rate 110. Saturating 97%. Will repeat albuterol and reassess. Time: 02:24 Reevaluation #2: Patient continues saturate 98% on room air. He is feeling much better. He still has faint inspiratory wheezes at the bases but aeration has significantly improved in his upper lung sebastian. He feels well enough to go home. His chest x-ray is negative for pneumonia and his labs were largely unremarkable. He is stable for discharge home with nebulizer treatments and prednisone. Time: 15:25 Medications Administered Discontinued Medications Generic Name Dose Route Start Last Admin Trade Name Freq PRN Reason Stop Dose Admin Albuterol Sulfate 10 mg 07/17/22 13:15 07/17/22 13:23 Albuterol Sulfate (0.083%) 2.5 Mg/3 Ml Vial.Neb INHALE 07/17/22 13:16 10 mg ONCE ONE Administration Albuterol Sulfate 10 mg 07/17/22 14:09 07/17/22 14:18 Albuterol Sulfate (0.083%) 2.5 Mg/3 Ml Vial.Neb INHALE 07/17/22 14:10 10 mg ONCE ONE Administration Methylprednisolone Sodium Succinate 125 mg 07/17/22 13:15 07/17/22 13:31 Methylprednisolone Sod Succ 125 Mg/2 Ml Vial IVPUSH 07/17/22 13:16 125 mg ONCE ONE Administration Medical Decision Making Medical Decision Making [facility] Narrative: 22-year-old male with history of asthma presents to the ER for evaluation of worsening shortness of breath and wheezing for the last 6 days. He arrives to the ER diaphoretic, tachycardic, in moderate respiratory distress. He was brought back to treatment room immediately where IV was established. He was given 125 mg of Solu-Medrol IV, 10 mg of albuterol with improvement in his respiratory status. VBG showing early pCO2 retention and mild respiratory acidosis indicative of pulmonary fatigue. Thankfully patient improved rather quickly. He was given a 2nd albuterol treatment with additional improvement. He is saturating well on room air. Chest x-ray is clear and he is feeling much better. He is stable for discharge home Differential Diagnosis Differential Diagnoses: The differential diagnosis associated with the presentation includes Acute asthma exacerbation, COPD exacerbation, heart failure exacerbation, bronchiolitis, bronchitis, pneumonia, foreign body in the airway Admission/Observation Consideration of admission/observation: Escalation of care including admission/observation considered Severe asthma exacerbation requiring multiple nebulizer treatments Lab Data MDM Lab Attestation statement: I reviewed the patient's lab results. Normocytic anemia, no major metabolic derangement 07/17/22 14:01 07/17/22 14:01 Labs: Lab Results 07/17/22 07/17/22 07/17/22 Range/Units 14: 14: 14:11 WBC 10.4 (4.8-10.8) X10*3/uL RBC 5.10 (4.60-5.80) X10*6/uL Hgb 12.8 L (14.0-18.0) g/dl Hct 40.7 L (42.0-52.0) % MCV 79.8 L (80.0-98.0) fL MCH 25.1 L (27.0-33.0) pg MCHC 31.4 (31.0-36.0) g/dl RDW 13.5 (11.0-16.0) % Plt Count 194 (160-400) X10*3/uL MPV 12.5 H (9.4-12.4) fL Immature Gran % (Auto) Cancelled Neut % (Auto) Cancelled Lymph % (Auto) Cancelled [place] % (Auto) Cancelled Eos % (Auto) Cancelled Baso % (Auto) Cancelled Lymph # (Auto) Cancelled [place] # (Auto) Cancelled Eos # (Auto) Cancelled Baso # (Auto) Cancelled Abs Immat Gran (auto) Cancelled Absolute Neuts (auto) Cancelled Absolute Nucleated RBC 0.000 (0.0-0.012) X10*3/uL Nucleated RBC % (auto) 0.0 (0.0-0.2) /100WBC Neutrophils % (Manual) 28 L (45-73) % Band Neutrophils % 0 L (3-5) % Lymphocytes % (Manual) 49 H (20-40) % Atypical Lymphs % (Man) 4 (0-6) % Monocytes % (Manual) 10 (2-11) % Eosinophils % (Manual) 6 H (0-4) % Basophils % (Manual) 3 H (0-2) % Abs Neuts (Manual) 2.9 (2.0-8.3) X10*3/uL Lymphocytes # (Manual) 5.1 H (1.2-4.9) X10*3/uL Atyp Lymphs # (Manual) 0.4 x10*3/uL Monocytes # (Manual) 1.0 (0.1-1.2) X10*3/uL Eosinophils # (Manual) 0.6 H (0.0-0.4) X10*3/uL Basophils # (Manual) 0.3 H (0.0-0.2) X10*3/uL Smudge Cells PRESENT Platelet Estimate NORMAL (NORMAL) Plt Morphology Comment NORMAL RBC Morphology NORMAL VBG pH 7.30 L (7.32-7.43) VBG pCO2 52 mmHg VBG pO2 38 mmHg VBG HCO3 26 (22-26) mmol/L VBG O2 Saturation 56.0 % VBG Base Excess -0.6 mmol/L Sodium 140 (135-145) mmol/L Potassium 3.3 (3.3-5.1) mmol/L Chloride 106 (96-108) mmol/L Carbon Dioxide 24 (22-29) mmol/L Anion Gap 13 (12-20) BUN 11 (9-16) mg/dL Creatinine 0.85 (0.5-1.4) mg/dL Estim Creat Clear Calc 116.5 Estimated GFR > 60 Random Glucose 159 H (60-115) mg/dL Calcium 9.2 (8.4-10.2) mg/dL Magnesium 2.2 (1.6-2.6) mg/dL Total Bilirubin 0.5 (0.0-1.0) mg/dL Direct Bilirubin 0.2 (0.0-0.5) mg/dL AST 95 H (5-37) U/L ALT 105 H (0-40) U/L Alkaline Phosphatase 86 (39-117) U/L Total Protein 6.8 (6.5-8.0) g/dL Albumin 4.0 (3.5-5.0) g/dL Lipase 13 (8-78) U/L ABG Data ABG Results: 7.30/52/38 Attestation ABG: I personally reviewed and interpreted this ABG as follows: Interpretation: Mild, acute respiratory acidosis Independent Interpretation I performed an independent interpretation of an: Plain X-Ray Interpretation: Chest x-ray clear, no evidence of pneumonia or effusion Radiology Impression Discussion of test interpretation with radiology: I have reviewed the radiologist's reading. Radiologist Impression: XR/XR chest 2V IMPRESSION: No acute pulmonary pathology. ? Independent Historian Clinical information obtained from an independent historian. History obtained from or confirmed by: Parent External Record Review External record reviewed: Inpatient record, Outpatient record and Prior outpatient labs Prescription Management I considered prescription management with: Antibiotic and Other (Beta agonist) Chronic Conditions Patient?s care impacted by: Other (Albuterol and prednisone) Critical Care Time Critical Care Time Critical Care Time: No Discharge Plan Discharge Clinical Impression: Asthma with exacerbation Patient Disposition: Home, Self-Care Instructions: Asthma (DC) Additional Instructions: Chest x-ray today was normal. Your lab workup was unremarkable. Take the prescribed steroid medication as directed, start this this afternoon. Complete the entire course. Use the prescribed inhaler every 4 hours until your symptoms are completely resolved. Use this inhaler as needed for shortness of breath or wheezing. Recommend following up with primary care doctor and/or a pulmonary doctor. Name and number below. Call for an appointment. If you develop new or worsening symptoms call 911 or come back to the ER for further evaluation. Prescriptions: New albuterol sulfate 90 mcg/actuation HFA aerosol inhaler 1 inh inhalation QID PRN (Reason: shortness of breath or wheezing) Qty: 6.7 0RF prednisone 20 mg tablet 40 mg PO DAILY Qty: 10 0RF albuterol sulfate 2.5 mg/0.5 mL solution for nebulization 5 mg inhalation Q4H PRN (Reason: shortness of breath or wheezing) Qty: 30 0RF No Action clindamycin HCl 300 mg capsule 300 mg PO Q8H Qty: 21 0RF One-A-Day Men VitaCraves 200 mcg tablet,chewable 1 tab PO DAILY 30 Days Qty: 30 0RF Referrals: [facility] Pul[facility] Services [Provider Group] (acute asthma exacerbation)
[2022-07-17 13:23] VITALS: PULSE 101; RESP 21; O2SAT 97
[2022-07-17] MEDS: Albuterol Sulfate (0.083%) 2.5 MG/3 ML VIAL.NEB 10 MG INHALE ×2 (13:23→14:18)
[2022-07-17] MEDS: methylPREDNISolone Sod Succ 125 MG/2 ML VIAL IVPUSH (13:31)
[2022-07-17 13:54] VITALS: BP 137/63; PULSE 119; RESP 22; TEMP 36.8; O2SAT 96
[2022-07-17 14:17] LABS: Hematocrit 40.7 % (42.0-52.0); Hemoglobin 12.8 g/dl (14.0-18.0); Mean Corpuscular HGB Conc 31.4 g/dl (31.0-36.0); Mean Corpuscular Hemoglobin 25.1 pg (27.0-33.0); Mean Corpuscular Volume 79.8 fL (80.0-98.0); Mean Platelet Volume 12.5 fL (9.4-12.4); Platelet Count 194 X10*3/uL (160-400); Red Cell Distribution Width 13.5 % (11.0-16.0); White Blood Count 10.4 X10*3/uL (4.8-10.8)
[2022-07-17 14:18] LABS: VBG Base Excess -0.6 mmol/L; VBG HCO3 26 mmol/L (22-26); VBG pCO2 52 mmHg; VBG pO2 38 mmHg
[2022-07-17 14:19] VITALS: PULSE 122; RESP 14; O2SAT 96
[2022-07-17 14:20] LABS: Venous Blood Gas Refer to POC result
[2022-07-17 14:32] LABS: Alanine Aminotransferase 105 U/L (0-40); Alkaline Phosphatase 86 U/L (39-117); Anion Gap 13 (12-20); Aspartate Amino Transferase 95 U/L (5-37); Bilirubin Direct 0.2 mg/dL (0.0-0.5); Bilirubin Total 0.5 mg/dL (0.0-1.0); Blood Urea Nitrogen 11 mg/dL (9-16); Calcium 9.2 mg/dL (8.4-10.2); Carbon Dioxide 24 mmol/L (22-29); Chloride 106 mmol/L (96-108); Creatinine Clr Calc Pharmacy 116.5; Estimated Glomerular Filt Rate > 60; Glucose Random 159 mg/dL (60-115); Lipase 13 U/L (8-78); Magnesium 2.2 mg/dL (1.6-2.6); Potassium 3.3 mmol/L (3.3-5.1); Sodium 140 mmol/L (135-145); Total Protein 6.8 g/dL (6.5-8.0)
[2022-07-17 15:04] LABS: Atypical Lymph Absolute Manual 0.4 x10*3/uL; Atypical Lymphs Percent Manual 4 % (0-6); Basophils Abs Manual 0.3 X10*3/uL (0.0-0.2); Basophils Percent Manual 3 % (0-2); Eosinophils Absolute Manual 0.6 X10*3/uL (0.0-0.4); Eosinophils Percent Manual 6 % (0-4); Lymphocytes Absolute Manual 5.1 X10*3/uL (1.2-4.9); Lymphocytes Percent Manual 49 % (20-40); Monocytes Percent Manual 10 % (2-11); Neutrophils Percent Manual 28 % (45-73)
[2022-07-17 15:05] LABS: Band Neutrophils Percent 0 % (3-5); Neutrophils Absolute Manual 2.9 X10*3/uL (2.0-8.3); Platelet Estimate NORMAL (NORMAL); Platelet Morphology Comment NORMAL; RBC Morphology NORMAL; Smudge Cells PRESENT
== END 2022-07-17 15:43 | disposition home or self-care (01) ==
PROVIDERS: Physician Assistant; Physician Assistant Medical; Emergency Provider Emergency Medicine Emergency Medical Services
DX: J45.901 Unspecified asthma with (acute) exacerbation (principal); R06.02 Shortness of breath; Z79.899 Other long term (current) drug therapy
CPT/HCPCS: 36415; 71046; 80048; 80076; 82803; 83690; 83735; 85007; 85027; 94640; 96374; 99284; 99285; J2930

== ENCOUNTER 2022-11-19 11:53 | Emergency (ER) | payer SELFPAY ==
--- NOTE | ~2022-11-19 | XR_ITS ---
EXAMINATION: XR CHEST CLINICAL INFORMATION: Wheezing and shortness of breath COMPARISON: 07/17/2022 TECHNIQUE: 2 views of the chest were obtained. FINDINGS: No significant abnormality is noted involving the heart, lungs, mediastinum, bony thorax or soft tissues. XR/XR chest 2V IMPRESSION: Unremarkable examination.
[2022-11-19 12:51] VITALS: BP 118/78; PULSE 77; RESP 16; TEMP 37.2; O2SAT 99; BMI 23.9
--- NOTE | 2022-11-19 12:51 | ED_ITS ---
HPI - Asthma General Chief Complaint: Asthma Stated Complaint: asthma Time Seen by Provider: 11/19/22 13:20 Source: patient and RN notes reviewed Mode of arrival: ambulatory Limitations: no limitations History of Present Illness HPI Narrative: This is a [id number]-male, with a hx of asthma, who presents to the ER with complaints of shortness of breath and wheezing x 2 days. He states that the cause of seasons typically causes him to develop these symptoms. He states that he has used his albuterol inhaler at home without any relief. He denies any fevers, chills, headaches, dizziness, abdominal pain, nausea, vomiting or diarrhea. No sick contacts. No other complaints or concerns at this time. MD complaint: asthma attack , shortness of breath and wheezing Onset (ago): day(s) Severity: moderate Context: none known Associated symptoms: none and dry cough Asthma History: childhood onset and history of prior ED visit Treatments Prior to Arrival: inhaled bronchodilator Related Data Current Asthma Therapy: inhaled bronchodilator Previous Rx's Medication Instructions Recorded clindamycin HCl 300 mg capsule 300 mg PO Q8H #21 caps 02/18/20 multivitamin with minerals-folic 1 tab PO DAILY 30 days #30 tabs 02/29/20 acid 200 mcg chewable tablet (One-A-Day Men VitaCraves) albuterol sulfate 2.5 mg/0.5 mL 5 mg inhalation Q4H PRN shortness 07/17/22 solution for nebulization of breath or wheezing #30 ea albuterol sulfate 90 mcg/actuation 1 inh inhalation QID PRN shortness 07/17/22 aerosol inhaler of breath or wheezing #6.7 grams prednisone 20 mg tablet 40 mg (2 x 20 mg) PO DAILY #10 tabs 07/17/22 albuterol sulfate 1.25 mg/3 mL 2.5 mg (6 mL) inhalation Q4-6H PRN 07/22/22 solution for nebulization shortness of breath or wheezing #75 mL albuterol sulfate 90 mcg/actuation 2 inh inhalation Q4-6H PRN 11/19/22 aerosol inhaler (ProAir HFA) shortness of breath or wheezing #6.7 grams prednisone 20 mg tablet 20 mg PO DAILY 5 days #5 tabs 11/19/22 Allergies Allergy/AdvReac Type Severity Reaction Status Date / Time sertraline [From ZOLOFT] Allergy Unknown HIVES Verified 11/19/22 12:54 vancomycin AdvReac Hives Verified 11/19/22 12:54 Review of Systems Review of Systems: Yes all other systems are reviewed and are negative Constitutional: Constitutional: Reports as per [facility] Past Medical History Attestation statement: The following information was validated with the patient. Medical History Hospital discharge follow-up No significant medical problems Surgical History H/O foot surgery Social History Social History Household Members: Family Household Members Other:: mom Housing: House Do you presently have visiting nurse or other home services: No Alcohol intake: never Smoked in Last 30 Days: No Use of substances other than those prescribed or required for medical reasons: No Substance Use Type: Marijuana Advance Directives: No Advance Directives Information Provided: No service: No Current occupational status: unemployed Physical Exam Vital Signs: Vital Signs: Last Vital Signs Temp 98.3 F 11/19/22 15:11 Pulse 75 11/19/22 15:11 Resp 18 11/19/22 15:11 BP 139/72 11/19/22 15:11 Pulse Ox 97 11/19/22 15:11 O2 Del Method Room Air 11/19/22 15:11 BMI result Body Mass Index 23.9 Const: General: cooperative, comfortable and no acute distress Orientation/consciousness: patient oriented x3 Limitations: no limitations HEENT: Head: Yes normal to inspection, Yes normocephalic and Yes atraumatic Ears: hearing grossly normal bilaterally General nose exam: Normal external nose present Face and sinus: Yes normal facial exam Mouth: Normal oral and palatal mucosa present, oropharynx normal and moist mucous membranes Throat: Yes posterior oropharynx normal Eyes: General: appearance normal, both eyes and all related structures Eyelids: Yes eyelids normal Conjunctivae: conjunctivae normal Sclerae: sclerae normal Pupils: Equal, round and reactive pupils present EOM: EOMs intact bilaterally Neck: Neck: Yes normal visual inspection, Yes full ROM and Yes no lymphadenopathy Lymphatic: no lymphadenopathy noted Chest: Chest palpation & inspection: normal inspection of the chest Resp: Effort & Inspection: normal respiratory effort and able to speak in complete sentences Auscultation: clear to auscultation bilaterally, no crackles, no rales, no rhonchi and no wheezes Cardio: Rate: regular rate Rhythm: regular rhythm Heart sounds: S1 normal heart sound present and S2 normal heart sound present GI: Inspection: Yes normal to inspection Skin: General skin exam: no rashes or lesions noted Trauma: no lacerations or abrasions Wounds: no wounds Neuro: General: patient oriented x3 and moves all extremities Cranial nerves: Yes Equal, round and reactive pupils present Extrem: General: Yes normal to inspection Right upper extremity: normal to inspection Left upper extremity: normal to inspection Right lower extremity: normal to inspection Left lower extremity: normal to inspection Course Course Course Narrative: RME: 22yo M w/PMHx asthma c/o SOB w/wheezing x4 days. denies CP, fever, chills, recent steroid use. Admits Neb & inhalers not working +diffuse exp wheeze noted. sating 97% on RA CXR, COVID/flu testing and albuterol inhaler ordered Full HPI, ROS and PE to be performed by primary ED provider. Medications Administered Discontinued Medications Generic Name Dose Route Start Last Admin Trade Name Freq PRN Reason Stop Dose Admin Albuterol Sulfate 4 puff 11/19/22 12:53 11/19/22 13:12 Albuterol Sulfate 90 Mcg 8 Gm Inhaler INHALE 11/19/22 12:54 4 puff ONCE ONE Administration Medical Decision Making Medical Decision Making MDM Narrative: 22 y/o M, hx of asthma, presenting to the ER with complaints of SOB and wheezing x 2 days. Symptoms started as seasons have changed. Pt tested Flu and COVID which are negative today. DDX including asthma exacerbation, URI, pneumonia, pneumothorax. On arrival, pt nontoxic appearing. Pt in triage had diffuse expiratory wheeze and pt was seen by the respiratory therapist where he was given multiple doses of albuterol puffs. Pt states that since then, he has been feeling much better and his symptoms have resolved. Upon my assessment, lungs are clear to auscultation bilaterally. Pt given spacer for inhaler. Encouraged to stay well hydrated and keep close eye on symptoms. Pt given course of steroids and given proair inhaler for refill. Given list of PCPS in the area for follow up. Return precautions discussed. Pt is stable for d/c. Differential Diagnosis Differential Diagnoses: The differential diagnosis associated with the present ation includes see above Admission/Observation Consideration of admission/observation: Escalation of care including admission/ observation considered Patient would have been admitted to the hospital had her work up had any findings where hospital admission was appropriate and her clinical presentation warranted hospital admission. Lab Data MDM Lab Attestation statement: I reviewed the patient's lab results. Labs: Lab Results 11/19/22 Range/Units 13:43 COVID-19 (WENDY) Negative (Negative) COVID-19 Clin Com See Note Influenza Type A (JAN) Negative (Negative) Influenza Type B (JAN) Negative (Negative) Influenza A & B Note See Note Radiology Impression Discussion of test interpretation with radiology: I have reviewed the radiologist's reading. Radiologist Impression: EXAMINATION: XR CHEST CLINICAL INFORMATION: Wheezing and shortness of breath COMPARISON: 07/17/2022 TECHNIQUE: 2 views of the chest were obtained. FINDINGS: No significant abnormality is noted involving the heart, lungs, mediastinum, bony thorax or soft tissues. XR/XR chest 2V IMPRESSION: Unremarkable examination. Dictated By: Ori Garcia MD External Record Review External record reviewed: Inpatient record, Office record, Outpatient record, Prior outpatient labs, Prior outpatient radiology, Primary care record and Outside ED record Prescription Management I considered prescription management with: Antibiotic considered, however symptoms consistent with asthma excerbation, abx not indicated at this time. Discharge Plan Discharge Clinical Impression: Asthma with acute exacerbation Patient Disposition: Home, Self-Care Instructions: Asthma (ED) Additional Instructions: Your symptoms improved after receiving inhaler puffs today. Your chest x-ray did not show pneumonia. You tested negative for COVID and flu today. Please take prescribed prednisone over the next few days. Please use albuterol inhaler and nebulizer as directed as needed for symptoms. If any new or worsening symptoms occur, including worsening shortness of breath, chest pain, please return for re-evaluation. Please follow-up with a primary care physician for further management of your asthma symptoms. Prescriptions: New prednisone 20 mg tablet 20 mg PO DAILY 5 Days Qty: 5 0RF albuterol sulfate [ProAir HFA] 90 mcg/actuation HFA aerosol inhaler 2 inh inhalation Q4-6H PRN (Reason: shortness of breath or wheezing) Qty: 6.7 0RF No Action clindamycin HCl 300 mg capsule 300 mg PO Q8H Qty: 21 0RF albuterol sulfate 90 mcg/actuation HFA aerosol inhaler 1 inh inhalation QID PRN (Reason: shortness of breath or wheezing) Qty: 6.7 0RF prednisone 20 mg tablet 40 mg PO DAILY Qty: 10 0RF albuterol sulfate 2.5 mg/0.5 mL solution for nebulization 5 mg inhalation Q4H PRN (Reason: shortness of breath or wheezing) Qty: 30 0RF albuterol sulfate 1.25 mg/3 mL solution for nebulization 2.5 mg inhalation Q4-6H PRN (Reason: shortness of breath or wheezing) Qty: 75 0RF One-A-Day Men VitaCraves 200 mcg tablet,chewable 1 tab PO DAILY 30 Days Qty: 30 0RF Stand Alone Forms: Work/School Release Interventions: ED Discharge Assessment Last Done: 11/19/22 15:30 Discharge Date/Time: 11/19/22 15:31
[2022-11-19] MEDS: Albuterol Sulfate 90 MCG 8 GM INHALER 4 PUFF INHALE (13:12)
[2022-11-19 13:14] VITALS: PULSE 76; RESP 18; O2SAT 97
[2022-11-19 14:04] LABS: IDNOW Serial# 9DB6401D; Influenza A Negative (Negative); Influenza B2 Negative (Negative)
[2022-11-19 14:05] LABS: COVID-19 Test Negative (Negative); IDNOW Serial# BCCEAD1C
[2022-11-19 15:11] VITALS: BP 139/72; PULSE 75; RESP 18; TEMP 36.8; O2SAT 97
== END 2022-11-19 15:31 | disposition home or self-care (01) ==
PROVIDERS: Physician Assistant; Emergency Provider Emergency Medicine
DX: J45.901 Unspecified asthma with (acute) exacerbation (principal); R06.02 Shortness of breath; Z20.822 Contact with and (suspected) exposure to COVID-19; Z20.828 Contact with and (suspected) exposure to other viral communicable diseases; Z79.899 Other long term (current) drug therapy
CPT/HCPCS: 71046; 87502; 87635; 94640; 94664; 99284

== ENCOUNTER 2023-04-12 19:13 | Emergency (ER) | payer SELFPAY ==
--- NOTE | ~2023-04-12 | XR_ITS ---
EXAMINATION: XR CHEST CLINICAL INFORMATION: Shortness of breath COMPARISON: Chest radiograph from 11/19/2022 TECHNIQUE: 2 views of the chest were obtained. FINDINGS: No focal consolidation. No pneumothorax. Trachea is midline. Cardiac mediastinal silhouette is not enlarged. No large pleural effusion. Osseous structures are intact. Soft tissues are unremarkable. XR/XR chest 2V IMPRESSION: No acute cardiopulmonary process.
[2023-04-12 19:21] VITALS: BP 168/145; PULSE 116; RESP 26; TEMP 36.7; O2SAT 95; BMI 24.2
[2023-04-12] MEDS: Albuterol Sulfate 5 MG, Albuterol Sulfate (0.083%) 2.5 MG 7.5 MG INHALE (19:46)
[2023-04-12] MEDS: Magnesium Sulfate/H2O 2 GM/50 ML PIGGYBACK IV (19:47)
--- NOTE | 2023-04-12 19:47 | ED_ITS ---
HPI - Asthma General Chief Complaint: Asthma Stated Complaint: asthma Time Seen by Provider: 04/12/23 19:38 Source: patient, family and old records reviewed Mode of arrival: ambulatory Limitations: no limitations History of Present Illness HPI Narrative: 22 yo male with PMH of asthma hx of hospitalization but no intubations only has rescue inhaler has had mild URI for a couple of days no fevers and now tight chest and wheezing no response to rescue inhaler has no PCP and only uses albuterol. He took 20mg prednisone [employer] that he had leftover as well. MD complaint: asthma attack , shortness of breath and wheezing Onset (ago): day(s) (2) Severity: severe Context: recent URI Associated symptoms: dry cough Asthma History: childhood onset Treatments Prior to Arrival: inhaled bronchodilator Related Data Previous Rx's Medication Instructions Recorded clindamycin HCl 300 mg capsule 300 mg PO Q8H #21 caps 02/18/20 multivitamin with minerals-folic 1 tab PO DAILY 30 days #30 tabs 02/29/20 acid 200 mcg chewable tablet (One-A-Day Men VitaCrDirectly) albuterol sulfate 2.5 mg/0.5 mL 5 mg inhalation Q4H PRN shortness 07/17/22 solution for nebulization of breath or wheezing #30 ea albuterol sulfate 90 mcg/actuation 1 inh inhalation QID PRN shortness 07/17/22 aerosol inhaler of breath or wheezing #6.7 grams prednisone 20 mg tablet 40 mg (2 x 20 mg) PO DAILY #10 tabs 07/17/22 albuterol sulfate 1.25 mg/3 mL 2.5 mg (6 mL) inhalation Q4-6H PRN 07/22/22 solution for nebulization shortness of breath or wheezing #75 mL albuterol sulfate 90 mcg/actuation 2 inh inhalation Q4-6H PRN 11/19/22 aerosol inhaler (ProAir HFA) shortness of breath or wheezing #6.7 grams prednisone 20 mg tablet 20 mg PO DAILY 5 days #5 tabs 11/19/22 albuterol sulfate 2.5 mg/3 mL 2.5 mg (3 mL) inhalation Q4-6H PRN 04/12/23 (0.083 %) solution for nebulization bronchospasm #75 mL azithromycin 250 mg tablet See Rx Instructions PO .COMPLEX #6 04/12/23 tabs fluticasone furoate 100 1 inh inhalation DAILY #30 ea 04/12/23 mcg/actuation blister powder for inhalation prednisone 20 mg tablet 40 mg (2 x 20 mg) PO DAILY 5 days 04/12/23 #10 tabs Allergies Allergy/AdvReac Type Severity Reaction Status Date / Time sertraline [From ZOLOFT] Allergy Unknown HIVES Verified 04/12/23 19:21 vancomycin AdvReac Hives Verified 04/12/23 19:21 Review of Systems 2 Review of Systems: Constitutional : No Fever, No Chills ENT/Mouth : No Hoarseness, No sore throat, No Rhinorrhea Eyes: No Redness, No Discharge, No Vision Changes Cardiovascular : No Chest Pain, positive SOB, positive Dyspnea on Exertion, No Edema Respiratory : positive Cough, No Sputum, positive Wheezing, Gastrointestinal : No Nausea, No Vomiting, No Diarrhea, No abdominal Pain Genitourinary : No Dysuria, No Hematuria Musculoskeletal : No joint pain, No Myalgias Skin : No rash Neuro : No Weakness, No Numbness, No Headache Psych : No anxiety, depression Heme/Lymph: No Bruising, No Bleeding Endocrine : No Polyuria, No Polydipsia All other systems reviewed and are negative PMFSH Past Medical History Attestation statement: The following information was validated with the patient. Source: old records reviewed Medical History Asthma Hospital discharge follow-up No significant medical problems Surgical History H/O foot surgery Social History Social History Household Members: Family Household Members Other:: mom Housing: House Do you presently have visiting nurse or other home services: No Alcohol intake: never Smoked in Last 30 Days: No Use of substances other than those prescribed or required for medical reasons: Yes Substance Use Type: Marijuana Substance Use Frequency: Chronic Longstanding Advance Directives: No Advance Directives Information Provided: No service: No Current occupational status: unemployed Physical Exam 2 Vital Signs: Vital Signs: Last Vital Signs Temp 98.5 F 04/12/23 19:58 Pulse 120 H 04/12/23 20:05 Resp 18 04/12/23 20:00 BP 133/64 04/12/23 20:00 Pulse Ox 99 04/12/23 20:00 O2 Del Method Room Air 04/12/23 20:00 O2 Flow Rate 6 04/12/23 19:58 BMI result Body Mass Index 24.2 Appearance: Alert. Oriented X3. Moderate acute distress. Eyes: Pupils equal, round and reactive to light. ENT: Pharynx normal. Neck: Normal inspection. Neck supple. CVS: tachycardic heart rate and rhythm. Pulses normal. Respiratory: Moderate respiratory distress short phrases, tachypnea/retractions. Breath sounds diminished throughout with audible wheezes Abdomen: Soft and nontender. Skin: Skin warm and dry. Normal skin color. Normal skin turgor. Extremities: No lower extremity edema. No calf ttp Neuro: Oriented X 3. No motor deficit. No sensory deficit. Course Course Course Narrative: patient is improving at this time Medications Administered Generic Name Dose Route Start Last Admin Trade Name Freq PRN Reason Stop Dose Admin Magnesium Sulfate 2 gm in 50 mls @ 25 mls/hr 04/12/23 19:37 04/12/23 19:47 Magnesium Sulfate/H2o IV 04/12/23 21:36 25 mls/hr ONCE ONE Administration Discontinued Medications Generic Name Dose Route Start Last Admin Trade Name Freq PRN Reason Stop Dose Admin Acetaminophen 975 mg 04/12/23 20:05 04/12/23 20:09 Acetaminophen 325 Mg Tablet PO 04/12/23 20:06 975 mg ONCE ONE Administration Albuterol Sulfate 5 mg/ 7.5 mg 04/12/23 19:43 04/12/23 19:46 Albuterol Sulfate 2.5 mg INHALE 04/12/23 19:44 7.5 mg ONCE ONE Administration Albuterol Sulfate 5 mg/ 0 mg 04/12/23 19:58 04/12/23 20:02 Albuterol/Ipratropium 3 ml INHALE 04/12/23 19:59 7.5 each ONCE ONE Administration Sodium Chloride 1,000 mls @ 999 mls/hr 04/12/23 19:45 04/12/23 20:09 Ns IV 04/12/23 20:45 999 mls/hr .Q1H1M DOLORES Administration Methylprednisolone Sodium Succinate 125 mg 04/12/23 19:37 04/12/23 19:48 Methylprednisolone Sod Succ 125 Mg/2 Ml Vial IVPUSH 04/12/23 19:38 125 mg ONCE ONE Administration Medical Decision Making Medical Decision Making [facility] Narrative: 22 yo male with PMH of asthma only on rescue INH at home at this time in moderate distress will give IV solumedrol, IV magnesium, hour long neb, basic labs, CXR and viral panel. Depending on improvement may need admission. Differential Diagnosis Differential Diagnoses: The differential diagnosis associated with the presentation includes asthma exacerbation, URI Admission/Observation Consideration of admission/observation: Escalation of care including admission/observation considered spoke at length with patient and his partner and he will not stay in the hospital he refuses to stay he is not hypoxic he is alert and oriented he is answering questions but states he is fine and can go home. I spoke to him about getting worse and needing intubation but he still declines. Lab Data [facility] Lab Attestation statement: I reviewed the patient's lab results. 04/12/23 19:47 04/12/23 19:47 Labs: Lab Results 04/12/23 04/12/23 Range/Units 19:26 19:47 WBC 15.0 H (4.8-10.8) X10*3/uL RBC 5.60 (4.60-5.80) X10*6/uL Hgb 14.7 (14.0-18.0) g/dl Hct 44.4 (42.0-52.0) % MCV 79.3 L (80.0-98.0) fL MCH 26.3 L (27.0-33.0) pg MCHC 33.1 (31.0-36.0) g/dl RDW 13.1 (11.0-16.0) % Plt Count 196 (160-400) X10*3/uL MPV 12.9 H (9.4-12.4) fL Immature Gran % (Auto) 0.5 H (0.0-0.4) % Neut % (Auto) 77.6 H (45-73) % Lymph % (Auto) 8.9 L (20-40) % Dane % (Auto) 5.6 (2-11) % Eos % (Auto) 6.8 H (0-4) % Baso % (Auto) 0.6 (0-2) % Lymph # (Auto) 1.3 (1.2-4.9) X10*3/uL Dane # (Auto) 0.8 (0.1-1.2) X10*3/uL Eos # (Auto) 1.0 H (0.0-0.4) X10*3/uL Baso # (Auto) 0.1 (0.0-0.2) X10*3/uL Abs Immat Gran (auto) 0.08 H (0.00-0.03) X10*3/uL Absolute Neuts (auto) 11.6 H (2.0-8.3) x10*3/uL Absolute Nucleated RBC 0.000 (0.0-0.012) X10*3/uL Nucleated RBC % (auto) 0.0 (0.0-0.2) /100WBC Sodium 142 (135-145) mmol/L Potassium 3.5 (3.3-5.1) mmol/L Chloride 105 (96-108) mmol/L Carbon Dioxide 24 (22-29) mmol/L Anion Gap 17 (12-20) BUN 13 (9-16) mg/dL Creatinine 0.87 (0.5-1.4) mg/dL Estim Creat Clear Calc 118.1 Estimated GFR > 60 Random Glucose 114 (60-115) mg/dL Calcium 9.5 (8.4-10.2) mg/dL Magnesium 2.1 (1.6-2.6) mg/dL Total Bilirubin 0.2 (0.0-1.0) mg/dL Direct Bilirubin < 0.2 (0.0-0.5) mg/dL AST 30 (5-37) U/L ALT 34 (0-40) U/L Alkaline Phosphatase 85 (39-117) U/L Total Protein 7.7 (6.5-8.0) g/dL Albumin 4.5 (3.5-5.0) g/dL Influenza Type A (PCR) NEGATIVE (Negative) Influenza Type B (PCR) NEGATIVE (Negative) RSV RNA Qual (PCR) POSITIVE A (Negative) SARS-CoV-2 RNA (RT-PCR) NEGATIVE (Negative) Independent Interpretation I performed an independent interpretation of an: Plain X-Ray (no pneumonia) Radiology Impression Discussion of test interpretation with radiology: I have reviewed the radiologist's reading. Independent Historian Clinical information obtained from an independent historian. History obtained from or confirmed by: Spouse External Record Review External record reviewed: Inpatient record Prescription Management I considered prescription management with: Antibiotic and Other Critical Care Time Critical Care Time Critical Care Time: Yes Total Critical Care Time: 60 Attestation: hour long nebs, IV magnesium, repeat assessments I attest to this time spent taking care of the patient Discharge Plan Discharge Clinical Impression: Respiratory syncytial virus (RSV) infection Asthma exacerbation Qualifiers: Asthma severity: moderate Asthma persistence: persistent Qualified Code(s): J 45.41 - Moderate persistent asthma with (acute) exacerbation Patient Disposition: Home, Self-Care Instructions: Respiratory Syncytial Virus (ED), Asthma (ED) Additional Instructions: you can come back at any time. you were offered admission but refused. if you feel worse please return. start the fluticasone after you complete the prednisone course Prescriptions: New albuterol sulfate 2.5 mg /3 mL (0.083 %) solution for nebulization 2.5 mg inhalation Q4-6H PRN (Reason: bronchospasm) Qty: 75 0RF azithromycin 250 mg tablet See Rx Instructions .ROUTE .COMPLEX Qty: 6 0RF Rx Instructions: For 250 mg dose pack: take 500 mg today (day 1), then 250 mg for 4 days (days 2-5) prednisone 20 mg tablet 40 mg PO DAILY 5 Days Qty: 10 0RF fluticasone furoate 100 mcg/actuation blister with device 1 inh inhalation DAILY Qty: 30 0RF Rx Instructions: rinse mouth after use No Action clindamycin HCl 300 mg capsule 300 mg PO Q8H Qty: 21 0RF albuterol sulfate 90 mcg/actuation HFA aerosol inhaler 1 inh inhalation QID PRN (Reason: shortness of breath or wheezing) Qty: 6.7 0RF prednisone 20 mg tablet 40 mg PO DAILY Qty: 10 0RF albuterol sulfate 2.5 mg/0.5 mL solution for nebulization 5 mg inhalation Q4H PRN (Reason: shortness of breath or wheezing) Qty: 30 0RF albuterol sulfate 1.25 mg/3 mL solution for nebulization 2.5 mg inhalation Q4-6H PRN (Reason: shortness of breath or wheezing) Qty: 75 0RF prednisone 20 mg tablet 20 mg PO DAILY 5 Days Qty: 5 0RF albuterol sulfate [ProAir HFA] 90 mcg/actuation HFA aerosol inhaler 2 inh inhalation Q4-6H PRN (Reason: shortness of breath or wheezing) Qty: 6.7 0RF One-A-Day Men VitaCraves 200 mcg tablet,chewable 1 tab PO DAILY 30 Days Qty: 30 0RF
[2023-04-12] MEDS: methylPREDNISolone Sod Succ 125 MG/2 ML VIAL IVPUSH (19:48)
[2023-04-12 19:49] VITALS: PULSE 117; RESP 32; O2SAT 97
[2023-04-12 19:58] VITALS: BP 121/78; PULSE 114; RESP 20; TEMP 36.9; O2SAT 95
[2023-04-12 20:00] VITALS: BP 133/64; PULSE 109; RESP 18; O2SAT 99
[2023-04-12] MEDS: Albuterol Sulfate 5 MG, Albuterol/Iprat 2.5/0.5MG 3 ML 3 ML INHALE (20:02)
[2023-04-12 20:05] VITALS: PULSE 120; O2SAT 95
[2023-04-12 20:08] LABS: Influenza A PCR NEGATIVE (Negative); Influenza B PCR NEGATIVE (Negative); Resp Syncy Virus RNA Qual PCR POSITIVE (Negative); SARS COV2 PCR INHOUSE NEGATIVE (Negative)
[2023-04-12] MEDS: Acetaminophen 325 MG TABLET 975 MG PO (20:09)
[2023-04-12] MEDS: 0.9 % Sodium Chloride 1,000 ML 999 ML IV (20:09)
[2023-04-12 20:42] LABS: MANUAL DIFF FLAG NO
[2023-04-12 20:44] LABS: Basophils Absolute Auto 0.1 X10*3/uL (0.0-0.2); Basophils Percent Auto 0.6 % (0-2); Eosinophils Percent Auto 6.8 % (0-4); Hematocrit 44.4 % (42.0-52.0); Hemoglobin 14.7 g/dl (14.0-18.0); Imm Gran Abs Auto 0.08 X10*3/uL (0.00-0.03); Imm Gran Pct Auto 0.5 % (0.0-0.4); Lymphocytes Absolute Auto 1.3 X10*3/uL (1.2-4.9); Lymphocytes Percent Auto 8.9 % (20-40); Mean Corpuscular HGB Conc 33.1 g/dl (31.0-36.0); Mean Corpuscular Hemoglobin 26.3 pg (27.0-33.0); Mean Corpuscular Volume 79.3 fL (80.0-98.0); Mean Platelet Volume 12.9 fL (9.4-12.4); Monocytes Absolute Auto 0.8 X10*3/uL (0.1-1.2); Monocytes Percent Auto 5.6 % (2-11); Neutrophils Absolute Auto 11.6 x10*3/uL (2.0-8.3); Neutrophils Percent Auto 77.6 % (45-73); Platelet Count 196 X10*3/uL (160-400); Red Cell Distribution Width 13.1 % (11.0-16.0)
[2023-04-12 20:59] LABS: Alanine Aminotransferase 34 U/L (0-40); Albumin Level 4.5 g/dL (3.5-5.0); Alkaline Phosphatase 85 U/L (39-117); Anion Gap 17 (12-20); Aspartate Amino Transferase 30 U/L (5-37); Bilirubin Direct < 0.2 mg/dL (0.0-0.5); Bilirubin Total 0.2 mg/dL (0.0-1.0); Blood Urea Nitrogen 13 mg/dL (9-16); Calcium 9.5 mg/dL (8.4-10.2); Carbon Dioxide 24 mmol/L (22-29); Chloride 105 mmol/L (96-108); Creatinine Clr Calc Pharmacy 118.1; Estimated Glomerular Filt Rate > 60; Glucose Random 114 mg/dL (60-115); Magnesium 2.1 mg/dL (1.6-2.6); Potassium 3.5 mmol/L (3.3-5.1); Sodium 142 mmol/L (135-145); Total Protein 7.7 g/dL (6.5-8.0)
[2023-04-12 21:30] VITALS: BP 126/63; PULSE 118; RESP 18; TEMP 36.8; O2SAT 97
== END 2023-04-12 21:34 | disposition home or self-care (01) ==
PROVIDERS: Emergency Provider Emergency Medicine
DX: J22 Unspecified acute lower respiratory infection (principal); J45.41 Moderate persistent asthma with (acute) exacerbation; B97.4 Respiratory syncytial virus as the cause of diseases classified elsewhere; R06.02 Shortness of breath; R05.9 Cough, unspecified; Z11.52 Encounter for screening for COVID-19; Z20.822 Contact with and (suspected) exposure to COVID-19; Z79.899 Other long term (current) drug therapy
CPT/HCPCS: 0241U; 36415; 71046; 80048; 80076; 83735; 85025; 94640; 96365; 96366; 96375; 99285; J2930; J3475